=== PATIENT | female | born 1990 | race Hispanic/Latino ===

== ENCOUNTER 2019-06-29 07:35 | Emergency (ER) | payer OTHER ==
--- NOTE | 2019-06-29 09:20 | RAD REPORT ---
EXAM DESCRIPTION: US - Transvaginal OB - 06/29/2019 8:16 am CLINICAL HISTORY: with vaginal bleeding COMPARISON: None. FINDINGS: The uterus measures 8 x 6 x 8 centimeters. Gestational sac within the endometrium measure s 2.8 x 2.9 x 3.7 centimeters. A yolk sac is seen. A pole with a crown-rump length 5 millimeter s. Cardiac activity not seen. Right and left ovary appear normal. . An adnexal mass is not noted. No significant free fluid is seen. IMPRESSION: Single lintrauterine with an estimated gestational age 7 weeks 2 days KIMBERLY Cardiac activity was not visualized. This may indicate a failed . It is still possible this could represent a viable however. It is recommended patient have a followup endovaginal so nogram in 1 week would for re-evaluation.
--- NOTE | 2019-06-29 09:46 | ER ---
Nurse's Notes [facility] Name: Anastacia Hollingsworth Age: 28 yrs Sex: Female : 1990 Arrival Date: 06/29/2019 Time: 07:37 Bed 5 Private MD: Diagnosis: Incomplete spontaneous without complication Presentation: 06/29 07:49 Presenting complaint: Patient states: I have had bright red vaginal bleeding, no clots, sg moderate flow, started this morning. Reports spotting that started yesterday and has just gotten worse. Transition of care: patient was not received from another setting of care. Onset of symptoms was June 29, 2019. Risk Assessment: Do you want to hurt yourself or someone else? Patient reports no desire to harm self or others. Initial Sepsis Screen: Does the patient meet any 2 criteria? No. Patient's initial sepsis screen is negative. Does the patient have a suspected source of infection? No. Patient's initial sepsis screen is negative. Care prior to arrival: None. 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 - Coronavirus screen:: The patient has NOT traveled to [place], [place], or [place] in the past 14 days. The patient has NOT had contact with known/suspected case of Coronavirus? Proceed with normal triage procedures. - Social history:: Smoking status: Patient denies any tobacco usage or history of. - Ebola Screening: : Patient negative for fever greater than or equal to 101.5 degrees Fahrenheit, and additional compatible Ebola Virus Disease symptoms Patient denies exposure to infectious person Patient denies travel to an Ebola-affected area in the 21 days before illness onset No symptoms or risks identified at this time. Screenin:28 Abuse screen: Denies threats or abuse. Denies injuries from another. Nutritional jl7 screening: No deficits noted. Tuberculosis screening: No symptoms or risk factors identified. Fall Risk None identified. Assessment: 07:50 General: Appears in no apparent distress. comfortable, well groomed, well developed, em well nourished, Behavior is calm, cooperative, appropriate for age, Denies fever. Pain: Complains of pain in suprapubic area Pain currently is 3 out of 10 on a pain scale. Pain began 2-3 days ago. Neuro: Level of Consciousness is awake, alert, obeys commands, Oriented to person, place, time, situation, Appropriate for age. Cardiovascular: Capillary refill < 3 seconds Patient's skin is warm and dry. Respiratory: Airway is patent Respiratory effort is even, unlabored, Respiratory pattern is regular, symmetrical. GI: Abdomen is flat. : Reports vaginal bleeding that is bright red, brown, spotty, since yesterday. Derm: Skin is intact, is healthy with good turgor, Skin is pink, warm \T\ dry. Musculoskeletal: Capillary refill < 3 seconds, Range of motion: intact in all extremities. 09:33 Reassessment: Patient appears in no apparent distress at this time. Patient and/or em family updated on plan of care and expected duration. Pain level reassessed. Patient is alert, oriented x 3, equal unlabored respirations, skin warm/dry/pink. 09:47 Reassessment: pending RhoGAM from blood bank. em Vital Signs: 07:47 BP 125 / 77; Pulse 98; Resp 16; Pulse Ox 98% on R/A; Pain 3/10; sg 09:33 BP 113 / 74; Pulse 88; Resp 16; Pulse Ox 99% on R/A; em ED Course: 07:37 Patient arrived in ED. rg4 07:42 Killian Yeung, RN is Primary Nurse. em 07:42 Jose Nguyen PA is PHCP. jr8 07:42 Sudarshan Childress MD is Attending Physician. jr8 07:50 Triage completed. sg 07:50 Arm band placed on. sg 08:28 Patient has correct armband on for positive identification. Bed in low position. Call jl7 light in reach. Side rails up X 1. Pulse ox on. NIBP on. 08:28 Initial lab(s) drawn, by me, sent to lab. jl7 08:31 Abo/rh Typing Sent. jl7 08:31 HCG-Quantitative Sent. jl7 11:10 No provider procedures requiring assistance completed. Patient did not have IV access em during this emergency room visit. Administered Medications: 11:04 Drug: RhoGAM (Human) 300 mcg Route: IM; Site: left deltoid; em 11:12 Follow up: Response: No adverse reaction em Outcome: 09:45 Discharge ordered by MD. mayfield 11:10 Discharged to home ambulatory, with family. em 11:10 Condition: good 11:10 Discharge instructions given to patient, family, Instructed on discharge instructions, follow up and referral plans. no drinking with medication, no driving heavy equipment, medication usage, Demonstrated understanding of instructions, follow-up care, medications, Prescriptions given X 1. 11:12 Patient left the ED. em Signatures: Odin Reyes, RN RN Killian Bryson RN Jose Hassan PA PA jr8 Garcia, Rubi rg4 Che Fletcher RN RN jl7
--- NOTE | 2019-06-29 09:47 | EDPHYS ---
Physician Documentation [facility] Name: Anastacia Hollingsworth Age: 28 yrs Sex: Female : 1990 Arrival Date: 06/29/2019 Time: 07:37 Bed 5 Private MD: ED Physician Sudarshan Childress HPI: 06/29 08:06 This 28 yrs old Female presents to ER via Ambulatory with complaints of jr8 Vaginal Bleeding, + Preg <12wks. 08:06 The patient presents to the emergency department with vaginal bleeding, that is light. jr8 08:07 The estimated gestational age is 8 weeks. course: care: private OB jr8 physician. Previous pregnancies: in previous pregnancies patient has had vaginal delivery, no complications. Associated signs and symptoms: The patient has no apparent associated signs or symptoms. The patient has not experienced similar symptoms in the past. The patient has been recently seen by a physician:. Patient had recent US showing loss of heart beat. Had HR of 82 about 2 weeks ago. Also had decrease in HCG. Was given Cytotec but had not taken it yet. Started to have light spotting and bleeding while using restroom. Wanted to get checked one more time and to talk about cytotec usage . 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 - Coronavirus screen:: The patient has NOT traveled to [place], [place], or [place] in the past 14 days. The patient has NOT had contact with known/suspected case of Coronavirus? Proceed with normal triage procedures. - Social history:: Smoking status: Patient denies any tobacco usage or history of. - Ebola Screening: : Patient negative for fever greater than or equal to 101.5 degrees Fahrenheit, and additional compatible Ebola Virus Disease symptoms Patient denies exposure to infectious person Patient denies travel to an Ebola-affected area in the 21 days before illness onset No symptoms or risks identified at this time. ROS: 08:16 Eyes: Negative for injury, pain, redness, and discharge, ENT: Negative for injury, jr8 pain, and discharge, Neck: Negative for injury, pain, and swelling, Cardiovascular: Negative for chest pain, palpitations, and edema, Respiratory: Negative for shortness of breath, cough, wheezing, and pleuritic chest pain, Abdomen/GI: Negative for abdominal pain, nausea, vomiting, diarrhea, and constipation, Back: Negative for injury and pain, MS/Extremity: Negative for injury and deformity, Skin: Negative for injury, rash, and discoloration, Neuro: Negative for headache, weakness, numbness, tingling, and seizure. 08:16 : Positive for vaginal bleeding. Exam: 08:16 Eyes: Pupils equal round and reactive to light, extra-ocular motions intact. Lids and jr8 lashes normal. Conjunctiva and sclera are non-icteric and not injected. Cornea within normal limits. Periorbital areas with no swelling, redness, or edema. ENT: Nares patent. No nasal discharge, no septal abnormalities noted. Tympanic membranes are normal and external auditory canals are clear. Oropharynx with no redness, swelling, or masses, exudates, or evidence of obstruction, uvula midline. Mucous membranes moist. Neck: Trachea midline, no thyromegaly or masses palpated, and no cervical lymphadenopathy. Supple, full range of motion without nuchal rigidity, or vertebral point tenderness. No Meningismus. Cardiovascular: Regular rate and rhythm with a normal S1 and S2. No gallops, murmurs, or rubs. Normal PMI, no JVD. No pulse deficits. Respiratory: Lungs have equal breath sounds bilaterally, clear to auscultation and percussion. No rales, rhonchi or wheezes noted. No increased work of breathing, no retractions or nasal flaring. Abdomen/GI: Soft, non-tender, with normal bowel sounds. No distension or tympany. No guarding or rebound. No evidence of tenderness throughout. Back: No spinal tenderness. No costovertebral tenderness. Full range of motion. Skin: Warm, dry with normal turgor. Normal color with no rashes, no lesions, and no evidence of cellulitis. MS/ Extremity: Pulses equal, no cyanosis. Neurovascular intact. Full, normal range of motion. Neuro: Awake and alert, GCS 15, oriented to person, place, time, and situation. Cranial nerves II-XII grossly intact. Motor strength 5/5 in all extremities. Sensory grossly intact. Cerebellar exam normal. Normal gait. Vital Signs: 07:47 BP 125 / 77; Pulse 98; Resp 16; Pulse Ox 98% on R/A; Pain 3/10; sg 09:33 BP 113 / 74; Pulse 88; Resp 16; Pulse Ox 99% on R/A; em MDM: 07:42 Patient medically screened. [facility] 09:42 Differential diagnosis: threatened Ab, inevitable Ab, complete Ab, retained Ab, missed jr8 Ab. Data reviewed: vital signs, nurses notes, lab test result(s), radiologic studies, ultrasound. Data interpreted: Pulse oximetry: on room air is 98 %. Interpretation: normal. Counseling: I had a detailed discussion with the patient and/or guardian regarding: the historical points, exam findings, and any diagnostic results supporting the discharge/admit diagnosis, lab results, radiology results, the need for outpatient follow up, an OB/Gyne specialist, to return to the emergency department if symptoms worsen or persist or if there are any questions or concerns that arise at home. ED course: Discussed with patient that HCG has drastically dropped. Still no cardiac activity. Continues to measure small for gestation. This given with the bleeding shows inevitable . Recommended cytotec at this time to liquor bridge operator helper in expulsion of POC. Patient agrees and will take at home. Discussed how to place the pills as well. S/S given to watch for that would indicate her needing to come back for further evaluation . 06/29 07:58 Order name: HCG-Quantitative [facility] 06/29 07:58 Order name: Abo/rh Typing [facility] 06/29 08:56 Order name: ABO/RH typing [facility] 06/29 09:10 Order name: HCG, Quantitative; Complete Time: 09:16 EDMO 06/29 09:35 Order name: Rh Typing [facility] 06/29 09:35 Order name: Antibody Screen [facility] 06/29 07:58 Order name: US Transvaginal Ob [facility] 06/29 09:27 Order name: US; Complete Time: 09:32 EDMS Administered Medications: 11:04 Drug: RhoGAM (Human) 300 mcg Route: IM; Site: left deltoid; em 11:12 Follow up: Response: No adverse reaction em Disposition: 15:18 Co-signature as Attending Physician, Sudarshan Childress MD I agree with the assessment and anahi plan of care. Disposition: 06/29/19 09:45 Discharged to Home. Impression: Incomplete spontaneous without complication. - Condition is Stable. - Discharge Instructions: Miscarriage. - Prescriptions for Tylenol- Codeine #3 300-30 mg Oral Tablet - take 2 tablets by ORAL route every 6 hours As needed; 20 tablet. - Family Work Release, Medication Reconciliation Form, Thank You Letter, Antibiotic Education, Prescription Opioid Use form. - Follow up: Private Physician; When: 2 - 3 days; Reason: Recheck today's complaints, Continuance of care, Re-evaluation by your physician. - Problem is new. - Symptoms are unchanged. Signatures: Dispatcher [employer] EDOdin Madera RN RN sg Anderson, Corey, MD MD cha Munoz, Edgar, RN RN Jose Morales PA PA jr8 Corrections: (The following items were deleted from the chart) 11:12 09:45 06/29/2019 09:45 Discharged to Home. Impression: Incomplete spontaneous em without complication. Condition is Stable. Forms are Medication Reconciliation Form, Thank You Letter, Antibiotic Education, Prescription Opioid Use. Follow up: Private Physician; When: 2 - 3 days; Reason: Recheck today's complaints, Continuance of care, Re-evaluation by your physician. Problem is new. Symptoms are unchanged. jr8
[2019-06-29 11:32] VITALS: BP 113/74; O2SAT 99
== END 2019-06-29 11:12 | disposition home or self-care (01) ==
LOC: ER 07:35
DX: O03.4 Incomplete spontaneous abortion without complication (principal); Z3A.08 8 weeks gestation of pregnancy
CPT/HCPCS: 36415; 86900; 86850; 85461; 86901 ×2; 84702; 76817; 96372; 99284; J2790

== ENCOUNTER 2021-05-07 07:52 | Emergency (ER) | payer OTHER ==
--- OUTSIDE RECORDS SUMMARY | 2021-05-07 07:55 | XMS REPORT | Continuity of Care Document ---
:1990 Author Organization [facility] t Address [address] [place] [address] Care Team Providers Name Role Phone Joyce Jefferson Attending Clinician JOYCE JEFFERSON Attending Clinician Unavailable GIANCARLO KATE Attending Clinician Unavailable Monse CHAPMAN Attending Clinician Unavailable JOYCE JEFFERSON Admitting Clinician Unavailable GIANCARLO KATE Admitting Clinician Unavailable Payers Payer Name Policy Type Policy Number Effective Date Expiration Date S [facility] OPEN ACCESS [employer] [id number] 2020 00:00:00 [employer] EPO Problems This patient has no known problems. Allergies, Adverse Reactions, Alerts This patient has no known allergies or adverse reactions. Social History Social Habit Start Date Stop Date Quantity Comments Source Sex Assigned At [address] 1990 [facility] 00:00:00 00:00:00 Smoking Status Start Date Stop Date Source Unknown if ever smoked [facility] Medications This patient has no known medications. Procedures This patient has no known procedures. Encounters Start End Encounter Admission Attending Care Care Encounter Source Date/Time Date/Time Type Type Clinicians Facility Department ID 2020-11-11 Outpatient [facility] [id number] [place] 10:06:02 Health 2020-11-11 2020-11-11 Telephone LISA Jefferson [id number] [place] 00:00:00 00:00:00 Quyn[id number] [facility] [id number] [facility] [id number] 2019-07-30 2019-07-30 Outpatient VIOLET JEFFERSON [facility] [id number] [facility] 05:18:00 09:41:00 QUYNH 2019-06-30 2019-07-01 Outpatient U LAVIN[id number] 23:05:00 17:34:00 LIZANDRO 2019-06-30 2019-06-30 Emergency E ADELA BL [facility] [id number] [facility] 17:04:00 19:55:00 MARICHUY Results This patient has no known results.
[2021-05-07 08:15] LABS: Urine Blood 2+ (Negative); Urine Glucose Negative (Negative); Urine Protein Negative (Negative); Urine pH 6.5 (5.0-7.0)
[2021-05-07 08:41] LABS: Urine Bacteria <20 /HPF (<20); Urine RBC <5 /HPF (NONE SEEN)
[2021-05-07 08:52] LABS: Absolute Lymphocytes (CBC) 0.8 K/uL (0.7-4.9); Basophils % 0.6 % (0-1.3); Hematocrit 35.9 % (36.0-45.0); MPV 7.7 fL (7.6-11.3); RBC Red Blood Cell Count 4.41 M/uL (3.86-4.86)
[2021-05-07 09:17] LABS: SARS-COV-2 RT PCR NEGATIVE (NEGATIVE)
[2021-05-07 09:38] LABS: ALT/SGPT 27 U/L (12-78); AST/SGOT 14 U/L (15-37); Albumin 2.8 g/dL (3.4-5.0); Alkaline Phosphatase 118 U/L (45-117); BUN Blood Urea Nitrogen 9 mg/dL (7-18); Bicarbonate 24 mmol/L (21-32); Bilirubin Direct 0.1 mg/dL (0-0.2); Bilirubin Total 0.6 mg/dL (0.2-1.0); Glucose Level 97 mg/dL (74-106); Lipase 62 U/L (73-393); Potassium 3.9 mmol/L (3.5-5.1); Protein, Total 6.9 g/dL (6.4-8.2); Sodium Level 141 mmol/L (136-145)
--- NOTE | 2021-05-07 09:45 | RAD REPORT ---
EXAM DESCRIPTION: CT - Abdomen Pelvis W Contrast - 05/07/2021 9:08 am CLINICAL HISTORY: Abdominal pain COMPARISON: May 07, 2021 TECHNIQUE: Computed axial tomography of the abdomen pelvis was obtained. 100 cc Isovue-300 was admin istered intravenously. Oral contrast was not requested which limits evaluation of bowel. All CT scans are performed using dose optimization technique as appropriate and may include automated exposure control or mA/KV adjustment according to patient size. FINDINGS: The liver, spleen, pancreas, adrenal and kidneys appear unremarkable. Umbilical hernia contains fat. The neck measures 17 millimeters. There is no evidence of diverticulitis. Appendix is not clearly seen. No stranding within the right lower quadrant. No adnexal mass. uterus. Endometrium is fluid-filled and mildly inhomogeneous. Maximum diameter approximate ly 10 millimeters. No air is present within the endometrium IMPRESSION: uterus. Endometrium fluid-filled mildly inhomogeneous measuring 10 millimeter s. This is a nonspecific finding but can be seen with endometritis
--- NOTE | 2021-05-07 10:05 | RAD REPORT ---
EXAM DESCRIPTION: US - OB Limited - 05/07/2021 9:53 am CLINICAL HISTORY: Pelvic pain FINDINGS: The uterus measures 13 x 7 x 11 centimeters. Fluid is present within the endometrium. End ometrial stripe measures 10 millimeters. There is some debris present within the endometrium. The end ometrial/myometrial interface appear somewhat indistinct. Mildly increased blood flow to the uterus. Neither ovary seen secondary to overlying bowel gas. The right and left adnexa are unremarkable No significant free fluid is seen. IMPRESSION: These findings are nonspecific but can be seen with an endometritis
--- NOTE | 2021-05-07 10:26 | ER ---
Nurse's Notes [facility] Name: Anastacia Hollingsworth Age: 30 yrs Sex: Female : 1990 Arrival Date: 05/07/2021 Time: 07:53 Bed 6 Private MD: Diagnosis: Endometritis following delivery;Fever, unspecified Presentation: 05/07 08:07 Chief complaint: Patient states: Fever since Saturday05/05/21; pt is 9 days . vg1 Denies NVD or cough. Coronavirus screen: Vaccine status: Patient reports receiving the 2nd dose of the covid vaccine. Ebola Screen: Patient negative for fever greater than or equal to 101.5 degrees Fahrenheit, and additional compatible Ebola Virus Disease symptoms. Initial Sepsis Screen: Does the patient meet any 2 criteria? HR > 90 bpm. Does the patient have a suspected source of infection? No. Patient's initial sepsis screen is negative. Risk Assessment: Do you want to hurt yourself or someone else? Patient reports no desire to harm self or others. Onset of symptoms was May 05, 2021. 08:07 Method Of Arrival: Ambulatory vg1 08:07 Acuity: KEYON 3 vg1 Triage Assessment: 08:07 General: Appears in no apparent distress. comfortable, Behavior is calm, cooperative. vg1 Pain: Complains of pain in right lower quadrant and left lower quadrant Pain currently is 4 out of 10 on a pain scale. EENT: No deficits noted. Neuro: Level of Consciousness is awake, alert, obeys commands, Oriented to person, place, time, situation. Cardiovascular: Patient's skin is warm and dry. Respiratory: Airway is patent Respiratory effort is even, unlabored. GI: Abdomen is round non-distended, Reports lower abdominal pain. : No signs and/or symptoms were reported regarding the genitourinary system. Derm: Skin is intact, is healthy with good turgor. Musculoskeletal: Circulation, motion, and sensation intact. 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 - Social history:: Smoking status: Patient denies any tobacco usage or history of. - Family history:: not pertinent. - Hospitalizations: : No recent hospitalization is reported. Screenin:11 Abuse screen: Denies threats or abuse. Nutritional screening: No deficits noted. vg1 Tuberculosis screening: No symptoms or risk factors identified. Fall Risk No fall in past 12 months (0 pts). No secondary diagnosis (0 pts). IV access (20 points). Ambulatory Aid- None/Bed Rest/Nurse Assist (0 pts). Gait- Normal/Bed Rest/Wheelchair (0 pts) Mental Status- Oriented to own ability (0 pts). Total Delacruz Fall Scale indicates No Risk (0-24 pts). Assessment: 08:11 Reassessment: SEE TRIAGE. vg1 09:18 Reassessment: Patient appears in no apparent distress at this time. No changes from vg1 previously documented assessment. Patient and/or family updated on plan of care and expected duration. Pain level reassessed. Patient is alert, oriented x 3, equal unlabored respirations, skin warm/dry/pink. 10:30 Reassessment: Patient appears in no apparent distress at this time. No changes from vg1 previously documented assessment. Patient and/or family updated on plan of care and expected duration. Pain level reassessed. Patient is alert, oriented x 3, equal unlabored respirations, skin warm/dry/pink. Vital Signs: 08:07 BP 136 / 90; Pulse 105; Resp 16; Temp 99.2(O); Pulse Ox 100% ; Weight 95.71 kg; Height vg1 5 ft. 2 in. (157.48 cm); Pain 0/10; 09:15 BP 127 / 66; Pulse 87; Resp 16; Pulse Ox 100% ; vg1 10:13 BP 130 / 88; Pulse 97; Resp 15; Pulse Ox 100% ; jl7 08:07 Body Mass Index 38.59 (95.71 kg, 157.48 cm) vg1 ED Course: 07:53 Patient arrived in ED. mr 07:54 Eloy Barragan MD is Attending Physician. rn 08:07 Kimberley Arias RN is Primary Nurse. vg1 08:07 Arm band placed on. vg1 08:08 Triage completed. vg1 08:11 Patient has correct armband on for positive identification. Bed in low position. Call vg1 light in reach. Side rails up X 1. 08:11 No provider procedures requiring assistance completed. vg1 08:17 COVID swab sent to lab. jl7 08:20 Missed attempt(s): 20 gauge in right antecubital area. vg1 08:30 Inserted saline lock: 20 gauge in left antecubital area, using aseptic technique. vg1 ,using aseptic technique. Completed by MAGALYS Bolton Blood collected. 08:30 Initial lab(s) drawn, by ED staff, sent to lab. First set of blood cultures drawn by ED vg1 staff. 09:08 CT Abd/Pelvis - IV Contrast Only In Process Unspecified. EDMS 09:53 US OB Limited In Process Unspecified. EDMS 10:22 initiated a transfer with Jazzmine from the [facility] Transfer Umpire. eb 10:59 connected the car framer integration analyst for [facility] with Dr. Barragan for patient transfer eb consultation. 11:01 administrative approval given by Jazzmine Lopez Rn/ patient has been accepted to [facility] / Dr. Freddy Chung has accepted the patient in transfer/ report to be called to [phone]. 11:30 Procalcitonin Sent. jl7 11:30 Basic Metabolic Panel Sent. jl7 11:30 CBC with Diff Sent. jl7 11:30 Quantitative Hcg Sent. jl7 11:47 Patient transferred, IV remains in place. vg1 Administered Medications: 10:39 Drug: Clindamycin 900 mg Route: IVPB; Infused Over: 30 mins; Site: left antecubital; vg1 11:13 Follow up: Response: No adverse reaction; IV Status: Completed infusion; IV Intake: [id number] 11:13 Drug: Gentamicin 5 mg/kg Route: IVPB; Infused Over: 60 mins; Site: left antecubital; vg1 11:47 Follow up: IV Status: Infusion continued upon transfer vg1 Intake: 11:13 IV: 50ml; Total: 50ml. vg1 Outcome: 10:26 ER care complete, transfer ordered by MD. moon 11:47 Transferred [facility] vg1 11:47 Condition: good 11:47 Instructed on the need for transfer. 11:47 Patient left the ED. vg1 Signatures: Dispatcher [employer] MARIA EElena Deng mr Eloy Barragan MD MD rn Leal, Jahala, RN RN jl7 Debbie Glaser Victoria, RN RN vg1 Corrections: (The following items were deleted from the chart) 08:10 08:07 Chief complaint: Patient states: Fever since Saturday05/05/21. Denies NVD or vg1 cough. vg1
--- NOTE | 2021-05-07 10:27 | EDPHYS ---
Physician Documentation [facility] Name: Anastacia Hollingsworth Age: 30 yrs Sex: Female : 1990 Arrival Date: 05/07/2021 Time: 07:53 Bed 6 Private MD: ED Physician Eloy Barragan HPI: 05/07 08:34 This 30 yrs old Female presents to ER via Ambulatory with complaints of Fever. rn 08:34 The patient reports fever, that was measured at 101 degrees Fahrenheit. Onset: The rn symptoms/episode began/occurred yesterday. Modifying factors: there are no obvious modifying factors. Associated signs and symptoms: Pertinent positives: abdominal pain, Pertinent negatives: altered mental status, cough, diarrhea, headache, hemoptysis, sinus congestion, skin rash, shortness of breath, sore throat, swelling, vomiting. Severity of symptoms: At their worst the symptoms were mild in the emergency department the symptoms are unchanged. The patient has not experienced similar symptoms in the past. The patient has been recently seen by a physician:. Patient reports 9 days following uncomplicated vaginal delivery, did require artificial rupture of membranes and was in labor for approximately 9 to 10 hours. Denies any foul-smelling discharge or change in discharge. Denies urinary symptoms. Denies cough or shortness of breath. Does report right lower quadrant pain. No breast swelling or increase in pain. No sick contacts.. 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 - Social history:: Smoking status: Patient denies any tobacco usage or history of. - Family history:: not pertinent. - Hospitalizations: : No recent hospitalization is reported. ROS: 08:34 Constitutional: Positive for fever Eyes: Negative for injury, pain, redness, and burning supervisor, ENT: Negative for injury, pain, and discharge, Neck: Negative for injury, pain, and swelling, Cardiovascular: Negative for chest pain, palpitations, and edema, Respiratory: Negative for shortness of breath, cough, wheezing, and pleuritic chest pain, Abdomen/GI: Positive for right lower quadrant abdominal pain Back: Negative for injury and pain, : Negative for injury, bleeding, discharge, and swelling, MS/Extremity: Negative for injury and deformity, Skin: Negative for injury, rash, and discoloration, Neuro: Negative for headache, weakness, numbness, tingling, and seizure. Exam: 08:34 Constitutional: This is a well developed, well nourished patient who is awake, alert, rn and in no acute distress. Ambulatory to room Head/Face: Normocephalic, atraumatic. Eyes: Periorbital areas with no swelling, redness, or edema. Neck: Trachea midline, no masses palpated, and no cervical lymphadenopathy Cardiovascular: Tachycardic, regular. No pulse deficits Respiratory: Speaking full sentences, unlabored. No increased work of breathing Abdomen/GI: Soft, mild right lower quadrant tenderness without masses or peritoneal signs Skin: Warm, dry MS/ Extremity: Pulses equal, no cyanosis. Neuro: Awake and alert, GCS 15 Vital Signs: 08:07 BP 136 / 90; Pulse 105; Resp 16; Temp 99.2(O); Pulse Ox 100% ; Weight 95.71 kg; Height vg1 5 ft. 2 in. (157.48 cm); Pain 0/10; 09:15 BP 127 / 66; Pulse 87; Resp 16; Pulse Ox 100% ; vg1 10:13 BP 130 / 88; Pulse 97; Resp 15; Pulse Ox 100% ; jl7 08:07 Body Mass Index 38.59 (95.71 kg, 157.48 cm) vg1 MDM: 07:54 Patient medically screened. rn 10:15 ED course: Pt with possible early endometritis, will initiate transfer back to [facility] given she delivered there 9 days ago and her OB is there. Abx ordered. . 10:25 Differential diagnosis: viral Infection, bacterial infection, UTI, endometritis. Data rn reviewed: vital signs, nurses notes, lab test result(s), radiologic studies, CT scan, ultrasound, and as a result, I will admit patient. Counseling: I had a detailed discussion with the patient and/or guardian regarding: the historical points, exam findings, and any diagnostic results supporting the discharge/admit diagnosis, lab results, radiology results, the need to transfer to another facility, for higher level of care, [facility] does not immediately have the required specialist. Response to treatment: There is no appreciated change of the patient's symptoms at this time, and as a result, I will admit patient. 05/07 08:09 Order name: CBC with Diff rn 05/07 08:09 Order name: Basic Metabolic Panel rn 05/07 08:09 Order name: Procalcitonin rn 05/07 08:09 Order name: LFT's; Complete Time: 09:40 rn 05/07 08:09 Order name: Lipase; Complete Time: 09:40 rn 05/07 08:09 Order name: LDH; Complete Time: 09:40 rn 05/07 08:09 Order name: Urine Culture rn 05/07 08:09 Order name: Urine Microscopic Only; Complete Time: 09:12 rn 05/07 08:09 Order name: Blood Culture Adult (2) rn 05/07 08:09 Order name: CBC with Automated Diff; Complete Time: 09:12 EDMS 05/07 08:09 Order name: Basic Metabolic Panel; Complete Time: 09:40 EDMS 05/07 08:09 Order name: Procalcitonin; Complete Time: 09:22 EDMS 05/07 08:09 Order name: IV Start; Complete Time: 08:34 rn 05/07 08:09 Order name: Urine Dipstick-Ancillary (obtain specimen); Complete Time: 08:34 rn 05/07 08:09 Order name: US OB Limited; Complete Time: 10:10 rn 05/07 08:12 Order name: Quantitative Hcg rn 05/07 08:13 Order name: HCG, Quantitative; Complete Time: 09:12 EDMS 05/07 08:15 Order name: Urine Dipstick-Ancillary; Complete Time: 08:33 EDMS 05/07 08:33 Order name: CT Abd/Pelvis - IV Contrast Only; Complete Time: 10:10 rn 05/07 08:38 Order name: COVID-19/FLU A+B; Complete Time: 09:22 EDMS Administered Medications: 10:39 Drug: Clindamycin 900 mg Route: IVPB; Infused Over: 30 mins; Site: left antecubital; vg1 11:13 Follow up: Response: No adverse reaction; IV Status: Completed infusion; IV Intake: 04agrb1 11:13 Drug: Gentamicin 5 mg/kg Route: IVPB; Infused Over: 60 mins; Site: left antecubital; vg1 11:47 Follow up: IV Status: Infusion continued upon transfer vg1 Disposition Summary: 05/07/21 10:26 Transfer Ordered Transfer Location: [facility] rn Reason: Higher level of care rn Condition: Stable rn Problem: new rn Symptoms: are unchanged rn Accepting Physician: Dr.C Chung(05/07/21 11:47) vg1 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 EDMS EDMS 08:39 08:09 Influenza Screen (A \T\ B)+BA.LAB.BRZ ordered. EDMS EDMS 11:07 10:26 Dr. moon eb 11:47 11:07 Dr.C Chung eb vg1
[2021-05-07] MEDS ORDERED: CLINDAMYCIN 900MG/D5W 900 MG/50 ML IVPB IV ONE (10:33)
[2021-05-07] MEDS ORDERED: NA CHLORIDE 0.9% IVPB ONE (11:00)
[2021-05-07] MEDS ORDERED: GENTAMICIN IVPB ONE (11:00)
[2021-05-07 11:58] VITALS: TEMP 99.2; O2SAT 100
[2021-05-07 12:11] VITALS: BP 130/88
== END 2021-05-07 11:47 | disposition short-term general hospital (02) ==
LOC: ER 07:52
DX: O86.12 Endometritis following delivery (principal); Z20.822 Contact with and (suspected) exposure to COVID-19
CPT/HCPCS: 96365; 96367; 87040 ×2; 87088; 85025; 87086; 80048; 36415; 83615; 82565; 80076; 84702; 83690; 84145; 0240U; 74177; 76815; 99285; Q9967; J1580; 81003; 81015; 87077; 87186

== ENCOUNTER 2021-11-11 20:08 | Emergency (ER) | payer BC ==
--- OUTSIDE RECORDS SUMMARY | 2021-11-11 20:11 | XMS REPORT | Continuity of Care Document ---
:1990 Author Organization [facility] t Address [address] [place] [address] Care Team Providers Name Role Phone Joyce Jefferson Attending Clinician JOYCE JEFFERSON Attending Clinician Unavailable GIANCARLO KATE Attending Clinician Unavailable Monse CHAPMAN Attending Clinician Unavailable JOYCE JEFFERSON Admitting Clinician Unavailable GIANCARLO KATE Admitting Clinician Unavailable Payers Payer Name Policy Type Policy Number Effective Date Expiration Date S [facility] OPEN ACCESS [employer]ET[employer] [id number] 2020 00:00:00 [employer] EPO Problems This patient has no known problems. Allergies, Adverse Reactions, Alerts This patient has no known allergies or adverse reactions. Social History Social Habit Start Date Stop Date Quantity Comments Source Sex Assigned At [birth year] [facility] 00:00:00 00:00:00 Smoking Status Start Date Stop Date Source Unknown if ever smoked [facility] Medications This patient has no known medications. Procedures This patient has no known procedures. Encounters Start End Encounter Admission Attending Care Care Encounter Source Date/Time Date/Time Type Type Clinicians Facility Department ID 2020-11-11 Outpatient [facility] [id number] [place] 10:06:02 Health 2020-11-11 2020-11-11 Telephone LISA Jefferson [id number] [place] 00:00:00 00:00:00 Quynh [id number] [id number] [facility] [id number] 2019-07-30 2019-07-30 Outpatient VIOLET JEFFERSON [facility] [id number] [facility] 05:18:00 09:41:00 QUYNH 2019-06-30 2019-07-01 Outpatient [id number] 23:05:00 17:34:00 LIZANDRO 2019-06-30 2019-06-30 Emergency E ADELA BL [facility] [id number] [facility] 17:04:00 19:55:00 MARICHUY Results This patient has no known results.
--- NOTE | 2021-11-11 21:09 | RAD REPORT ---
EXAM DESCRIPTION: RAD - Ankle Right 3 View - 11/11/2021 9:04 pm CLINICAL HISTORY: PAIN COMPARISON: No comparisons FINDINGS/IMPRESSION: No acute fracture. No malalignment. No significant focal degenerative changes.
--- NOTE | 2021-11-11 21:28 | ER ---
Nurse's Notes [facility] Name: Anastacia Hollingsworth Age: 31 yrs Sex: Female : 1990 Arrival Date: 11/11/2021 Time: 20:10 Bed 6 Private MD: Diagnosis: Contusion of right foot Presentation: 11/11 20:15 Chief complaint: Patient states: I was pumping - my legs fell asleep. When I stood up I ld1 rolled my right ankle and heard a loud crack. C/O right foot pain. Coronavirus screen: At this time, the client does not indicate any symptoms associated with coronavirus-19. Ebola Screen: No symptoms or risks identified at this time. Initial Sepsis Screen: Does the patient meet any 2 criteria? No. Patient's initial sepsis screen is negative. Does the patient have a suspected source of infection? No. Patient's initial sepsis screen is negative. Risk Assessment: Do you want to hurt yourself or someone else? Patient reports no desire to harm self or others. Onset of symptoms was November 11, 2021. 20:15 Method Of Arrival: Wheelchair ld1 20:15 Acuity: KEYON 4 ld1 Triage Assessment: 20:17 General: Appears in no apparent distress. comfortable, Behavior is calm, cooperative, ld1 appropriate for age. Pain: Complains of pain in right foot Pain does not radiate. Pain currently is 4 out of 10 on a pain scale. EENT: No signs and/or symptoms were reported regarding the EENT system. Neuro: Level of Consciousness is awake, alert, obeys commands, Oriented to person, place, time, situation, Appropriate for age. Cardiovascular: Capillary refill < 3 seconds Patient's skin is warm and dry. Respiratory: Airway is patent Respiratory effort is even, unlabored. GI: Abdomen is flat, non-distended. : No signs and/or symptoms were reported regarding the genitourinary system. Derm: No signs and/or symptoms reported regarding the dermatologic system. Musculoskeletal: No signs and/or symptoms reported regarding the musculoskeletal system. Injury Description: rolled right ankle. 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 - Social history:: Smoking status: Patient denies any tobacco usage or history of. Patient/guardian denies using alcohol. Screenin:03 Abuse screen: Denies threats or abuse. Denies injuries from another. Nutritional lg3 screening: No deficits noted. Tuberculosis screening: No symptoms or risk factors identified. Fall Risk None identified. Assessment: 21:03 General: Appears in no apparent distress. comfortable, Behavior is calm, cooperative. lg3 Pain: Complains of pain in right foot. Neuro: No deficits noted. Argueta Agitation-Sedation Scale (RASS): 0 - Alert and Calm Level of Consciousness is awake, alert, obeys commands, Oriented to person, place, time, situation. Cardiovascular: No deficits noted. Denies chest pain, shortness of breath, Capillary refill < 3 seconds Clubbing of nail beds is absent JVD is absent Patient's skin is warm and dry. Respiratory: No deficits noted. Airway is patent Trachea midline Respiratory effort is even, unlabored, Respiratory pattern is regular, symmetrical. GI: No deficits noted. No signs and/or symptoms were reported involving the gastrointestinal system. : No deficits noted. No signs and/or symptoms were reported regarding the genitourinary system. EENT: No deficits noted. No signs and/or symptoms were reported regarding the EENT system. Derm: No deficits noted. Skin is intact, is healthy with good turgor, Skin is dry, Skin temperature is warm. Musculoskeletal: Circulation, motion, and sensation intact. Range of motion: limited in right foot Swelling present in right foot. 21:38 Reassessment: Patient appears in no apparent distress at this time. No changes from lg3 previously documented assessment. Patient and/or family updated on plan of care and expected duration. Pain level reassessed. Patient is alert, oriented x 3, equal unlabored respirations, skin warm/dry/pink. Vital Signs: 20:15 BP 118 / 64; Pulse 87; Resp 18; Temp 98.6(TE); Pulse Ox 100% on R/A; Weight 89.81 kg; ld1 Height 5 ft. 3 in. (160.02 cm); Pain 4/10; 21:38 BP 120 / 66; Pulse 85; Resp 18 S; Pulse Ox 100% on R/A; lg3 20:15 Body Mass Index 35.07 (89.81 kg, 160.02 cm) ld1 ED Course: 20:10 Patient arrived in ED. vc1 20:11 Lakia Mcdowell FNP is [facility] jh7 20:11 Ken Clarke MD is Attending Physician. 7 20:15 Leslie Wellington, RN is Primary Nurse. ld1 20:17 Deysi Siddiqui, RN is Primary Nurse. lg3 20:17 Triage completed. ld1 20:17 Arm band placed on right wrist. ld1 21:03 Patient has correct armband on for positive identification. Bed in low position. Call lg3 light in reach. Side rails up X 1. Client placed on continuous cardiac and pulse oximetry monitoring. NIBP monitoring applied. Door closed. Noise minimized. 21:06 XRAY Ankle RIGHT 3 view In Process Unspecified. EDMS 21:06 XRAY Foot RIGHT 3 View In Process Unspecified. EDMS 21:39 No provider procedures requiring assistance completed. Patient did not have IV access lg3 during this emergency room visit. Administered Medications: No medications were administered Medication: 21:40 VIS not applicable for this client. lg3 Outcome: 21:[address] ordered [address] . [facility] 21:40 Discharged to home with crutches. lg3 21:40 Condition: stable 21:40 Discharge instructions given to patient, Instructed on discharge instructions, crutch walking, Demonstrated understanding of instructions, crutch walking. 21:41 Patient left the ED. lg3 Signatures: Dispatcher [employer] EDTX Deysi Siddiqui, MAGALYS DOWELL lg3 Leslie Wellington, RN RN 1 Maura Freitas RN RN 1 Lakia Mcdowell FNP JUVENILE PROBATION OFFICER [facility]
--- NOTE | 2021-11-11 21:28 | EDPHYS ---
Physician Documentation [facility] Name: Anastacia Hollingsworth Age: 31 yrs Sex: Female : 1990 Arrival Date: 11/11/2021 Time: 20:10 Bed 6 Private MD: ED Physician Ken Clarke HPI: 11/11 20:20 This 31 yrs old Female presents to ER via Wheelchair with complaints of Foot jh7 Injury. 20:20 The patient presents with an injury, pain, that is acute. The complaints affect the jh7 right foot. Onset: The symptoms/episode began/occurred acutely. Associated signs and symptoms: Pertinent positives: swelling, Pertinent negatives calf tenderness, fever, nausea, numbness. The patient reports that she got out of bed, slipped, and fell on her right foot. States that she heard a pop. Reports pain with weightbearing and range of motion.. 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 - Social history:: Smoking status: Patient denies any tobacco usage or history of. Patient/guardian denies using alcohol. ROS: 20:20 Constitutional: Negative for fever, chills, and weight loss, Cardiovascular: Negative jh7 for chest pain, palpitations, and edema, Respiratory: Negative for shortness of breath, cough, wheezing, and pleuritic chest pain, Abdomen/GI: Negative for abdominal pain, nausea, vomiting, diarrhea, and constipation, Back: Negative for injury and pain, Skin: Negative for injury, rash, and discoloration, Neuro: Negative for headache, weakness, numbness, tingling, and seizure. 20:20 MS/extremity: Positive for injury or acute deformity, ecchymosis, pain, swelling, Negative for decreased range of motion. 20:20 All other systems are negative. Exam: 20:20 Constitutional: This is a well developed, well nourished patient who is awake, alert, jh7 and in no acute distress. Cardiovascular: Regular rate and rhythm with a normal S1 and S2. No gallops, murmurs, or rubs. Normal PMI, no JVD. No pulse deficits. Respiratory: Lungs have equal breath sounds bilaterally, clear to auscultation and percussion. No rales, rhonchi or wheezes noted. No increased work of breathing, no retractions or nasal flaring. Abdomen/GI: Soft, non-tender, with normal bowel sounds. No distension or tympany. No guarding or rebound. No evidence of tenderness throughout. Back: No spinal tenderness. No costovertebral tenderness. Full range of motion. Skin: Warm, dry with normal turgor. Normal color with no rashes, no lesions, and no evidence of cellulitis. Neuro: Awake and alert, GCS 15, oriented to person, place, time, and situation. Sensory grossly intact. Cerebellar exam normal. Antalgic gait. 20:20 Musculoskeletal/extremity: NVI, large contusion over the dorsum of the foot with tenderness to palpation. Pain with dorsi and plantar flexion.. Vital Signs: 20:15 BP 118 / 64; Pulse 87; Resp 18; Temp 98.6(TE); Pulse Ox 100% on R/A; Weight 89.81 kg; ld1 Height 5 ft. 3 in. (160.02 cm); Pain 4/10; 21:38 BP 120 / 66; Pulse 85; Resp 18 S; Pulse Ox 100% on R/A; lg3 20:15 Body Mass Index 35.07 (89.81 kg, 160.02 cm) ld1 MDM: 20:11 Patient medically screened. [facility] 20:20 Differential diagnosis: closed fracture, contusion. Data reviewed: vital signs, nurses [facility] notes, radiologic studies, plain films. Data interpreted: Pulse oximetry: is 100 %. Interpretation: normal. Counseling: I had a detailed discussion with the patient and/or guardian regarding: the historical points, exam findings, and any diagnostic results supporting the discharge/admit diagnosis, to return to the emergency department if symptoms worsen or persist or if there are any questions or concerns that arise at home. ED course: Reviewed the x-ray results with the patient. She was placed on crutches and advised to take ibuprofen/Tylenol for pain.. 11/11 20:18 Order name: XRAY Ankle RIGHT 3 view; Complete Time: 21:26 [facility] 11/11 20:18 Order name: XRAY Foot RIGHT 3 View; Complete Time: 21:26 [facility] 11/11 21:26 Order name: Crutches; Complete Time: 21:38 [facility] Administered Medications: No medications were administered Disposition: 11/12 05:16 Co-signature as Attending Physician, Ken Clarke MD. [facility] Disposition Summary: 11/11/21 21:27 Discharge Ordered Location: Home [facility] Problem: new [facility] Symptoms: are unchanged [facility] Condition: Stable [facility] Diagnosis - Contusion of right foot [facility] Followup: [facility] - With: Private Physician - When: 2 - 3 days - Reason: Recheck today's complaints Discharge Instructions: - Discharge Summary Sheet [facility] - Foot Contusion [facility] Forms: - Medication Reconciliation Form [facility] - Thank You Letter [facility] Signatures: Dispatcher [employer] Ken Cope MD MD [facility] Leslie Wellington RN RN ld1 Lakia Mcdowell FNP [place] [id number]
[2021-11-11 22:31] VITALS: TEMP 98.6; O2SAT 100
[2021-11-11 22:33] VITALS: BP 120/66
== END 2021-11-11 21:41 | disposition home or self-care (01) ==
LOC: ER 20:08
DX: S90.31XA Contusion of right foot, initial encounter (principal)
CPT/HCPCS: 99283

== ENCOUNTER 2022-10-04 08:30 | Emergency (ER) | payer BC ==
--- OUTSIDE RECORDS SUMMARY | 2022-10-04 08:33 | XMS REPORT | Continuity of Care Document ---
:1990 Author Organization [facility] t Address [address] [facility] [address] [place] [address] Care Team Providers Name Role Phone Quynh Jefferson Attending Clinician [phone] QUYNH JEFFERSON Attending Clinician Unavailable LIZANDRO KATE Attending Clinician Unavailable MARICHUY CHAPMAN Attending Clinician Unavailable QUYNH JEFFERSON Admitting Clinician Unavailable LIZANDRO KATE Admitting Clinician Unavailable Payers Payer Name Policy Type Policy Number Effective Date Expiration Date S mari OPEN ACCESS [employer]ET[employer] [id number] 2020 00:00:00 [employer] EPO Problems This patient has no known problems. Allergies, Adverse Reactions, Alerts This patient has no known allergies or adverse reactions. Social History Social Habit Start Date Stop Date Quantity Comments Source Sex Assigned At [birth year] [facility] 00:00:00 00:00:00 Smoking Status Start Date Stop Date Source Unknown if ever smoked [facility] Medications This patient has no known medications. Procedures This patient has no known procedures. Encounters Start End Encounter Admission Attending Care Care Encounter Source Date/Time Date/Time Type Type Clinicians Facility Department ID 2020-11-11 Outpatient [facility] [id number] [place] 10:06:02 Health 2020-11-11 2020-11-11 Telephone LISA Jefferson [id number] [place] 00:00:00 00:00:00 Quynh ROMAN [id number] H [facility] [id number] [facility] [id number] 2019-07-30 2019-07-30 Outpatient RONNY CHAI [facility] [id number] [facility] 05:18:00 09:41:00 QUYNH 2019-06-30 2019-07-01 Outpatient U LAVINIA [facility] [id number] [facility] 23:05:00 17:34:00 LIZANDRO 2019-06-30 2019-06-30 Emergency E ADELA BL [facility] [id number] [facility] 17:04:00 19:55:00 MARICHUY Results This patient has no known results.
--- NOTE | 2022-10-04 09:22 | RAD REPORT ---
EXAM DESCRIPTION: RAD - Ankle Right 3 View - 10/04/2022 8:57 am CLINICAL HISTORY: Right ankle pain FINDINGS: No fracture or dislocation is seen.
--- NOTE | 2022-10-04 09:23 | RAD REPORT ---
EXAM DESCRIPTION: RAD - Foot Right 3 View - 10/04/2022 8:57 am CLINICAL HISTORY: Right foot pain status post injury FINDINGS: No fracture or dislocation is seen
--- NOTE | 2022-10-04 09:30 | EDPHYS ---
Physician Documentation [facility] Name: Anastacia Hollingsworth Age: 31 yrs Sex: Female : 1990 Arrival Date: 10/04/2022 Time: 08: Bed 2 Private MD: ED Physician Hussain Paula HPI: 10/04 09:06 This 31 yrs old Female presents to ER via Wheelchair with complaints of Ankle rt Injury. 09:06 Patient presents to the ED with an injury to the right ankle. Patient states that just rt prior to arrival, a "gave out" on her and she states that she twisted the ankle. She has pain laterally on the ankle as well as to the foot. Denies other injury, other acute complaints at this time. Pain is aching nature, nonradiating, mild in severity, no other aggravating alleviating factors.. Historical: - Allergies: 08: No Known Allergies; ll1 - PMHx: 08: pre eclampsia; ll1 - PSHx: 08:31 D\\T\\C; ll1 - Immunization history:: Adult Immunizations up to date. - Social history:: Smoking status: Patient denies any tobacco usage or history of. - Family history:: not pertinent. ROS: 09:06 Constitutional: Negative for fever, chills, and weight loss, Back: Negative for injury rt and pain, Skin: Negative for injury, rash, and discoloration, Neuro: Negative for headache, weakness, numbness, tingling, and seizure, Psych: Negative for depression, anxiety, suicide ideation, homicidal ideation, and hallucinations. 09:06 MS/extremity: Positive for pain, Negative for laceration. Exam: 09:06 Constitutional: This is a well developed, well nourished patient who is awake, alert, rt and in no acute distress. Head/Face: Normocephalic, atraumatic. Skin: Warm, dry with normal turgor. Normal color with no rashes, no lesions, and no evidence of cellulitis. Neuro: Awake and alert, GCS 15, oriented to person, place, time, and situation. Cranial nerves II-XII grossly intact. Motor strength 5/5 in all extremities. Sensory grossly intact. Cerebellar exam normal. Normal gait. Psych: Awake, alert, with orientation to person, place and time. Behavior, mood, and affect are within normal limits. 09:06 Musculoskeletal/extremity: Tenderness with mild swelling over the lateral malleolus of the right ankle, mild tenderness laterally on the foot, pulses, motor, sensation intact, no other focal areas of tenderness, range of motion intact.. Vital Signs: 08:38 BP 101 / 67; Pulse 109; Resp 18; Temp 97.7; Pulse Ox 100% on R/A; ph MDM: 08:32 Patient medically screened. rt 09:30 Differential diagnosis: fracture, sprain. Data reviewed: vital signs, nurses notes, rt radiologic studies. Independent interpretation of the following test(s) in the Emergency Department X-Ray: My interpretation is No fracture seen on interpretation of the x-ray images. Counseling: I had a detailed discussion with the patient and/or guardian regarding: the historical points, exam findings, and any diagnostic results supporting the discharge/admit diagnosis, radiology results, the need for outpatient follow up. 10/04 08:39 Order name: Foot Right 3 View XRAY; Complete Time: 09:24 rt 10/04 08:39 Order name: Ankle Right 3 View XRAY; Complete Time: 09:24 rt Administered Medications: No medications were administered Disposition Summary: 10/04/22 09:29 Discharge Ordered Location: Home rt Problem: new rt Symptoms: have improved rt Condition: Stable rt Diagnosis - Sprain of unspecified ligament of right ankle rt Followup: rt - With: Private Physician - When: 2 - 3 days - Reason: Discharge Instructions: - Discharge Summary Sheet rt - Ankle Sprain rt Forms: - Medication Reconciliation Form rt - Thank You Letter rt - Antibiotic Education rt - Prescription Opioid Use rt Signatures: Dispatcher [employer] Karie Mendoza, RN RN ll1 Hussain Paula MD MD rt
--- NOTE | 2022-10-04 09:30 | ER ---
Nurse's Notes [facility] Name: Anastacia Hollingsworth Age: 31 yrs Sex: Female : 1990 Arrival Date: 10/04/2022 Time: 08:30 Bed 2 Private MD: Diagnosis: Sprain of unspecified ligament of right ankle Presentation: 10/04 08:32 Chief complaint: Patient states: Rolled R ankle while getting kid into vehicle just ll1 [employer]. Coronavirus screen: Vaccine status: Patient reports receiving the 2nd dose of the covid vaccine. Client denies travel out of the [place] in the last 14 days. At this time, the client does not indicate any symptoms associated with coronavirus-19. Ebola Screen: Patient denies travel to an Ebola-affected area in the 21 days before illness onset. Initial Sepsis Screen: Does the patient meet any 2 criteria? No. Patient's initial sepsis screen is negative. Does the patient have a suspected source of infection? No. Patient's initial sepsis screen is negative. Risk Assessment: Do you want to hurt yourself or someone else? Patient reports no desire to harm self or others. Onset of symptoms was October 04, 2022. 08:32 Acuity: KEYON 4 ll1 08:32 Method Of Arrival: Wheelchair ll1 Triage Assessment: 08:33 General: Appears uncomfortable, Behavior is calm, cooperative, appropriate for age. ll1 Pain: Complains of pain in R ankle. Musculoskeletal: Circulation, motion, and sensation intact. Capillary refill < 3 seconds, Swelling present in R ankle. Historical: - Allergies: 08:31 No Known Allergies; ll1 - PMHx: 08:31 pre eclampsia; ll1 - PSHx: 08:31 D\T\C; ll1 - Immunization history:: Adult Immunizations up to date. - Social history:: Smoking status: Patient denies any tobacco usage or history of. - Family history:: not pertinent. Screenin:47 [facility] ED Fall Risk Assessment (Adult) History of falling in the last 3 months, ph including since admission Yes- single mechanical fall (1 pt) Confusion or Disorientation No (0 pts) Intoxicated or Sedated No (0 pts) Impaired Gait No (0 pts) Mobility Assist Device Used No (0 pt) Altered Elimination No (0 pt) Score/Fall Risk Level 0 - 2 = Low Risk Oriented to surroundings, Maintained a safe environment, Hourly rounding (assess needs \T\ fall precautionary measures) done. Abuse screen: Denies threats or abuse. Denies injuries from another. Nutritional screening: No deficits noted. Tuberculosis screening: No symptoms or risk factors identified. Assessment: 08:45 General: Appears in no apparent distress. comfortable, well groomed, Behavior is calm, ph cooperative, appropriate for age. Pain: Complains of pain in right foot, right ankle and right Achilles. Neuro: Level of Consciousness is awake, alert, obeys commands, Oriented to person, place, time, situation. Cardiovascular: Capillary refill < 3 seconds in bilateral fingers Patient's skin is warm and dry. Respiratory: Airway is patent Respiratory effort is even, unlabored. Derm: Skin is pink, warm \T\ dry. Musculoskeletal: Circulation, motion, and sensation intact. 09:58 Reassessment: Patient appears in no apparent distress at this time. Patient and/or ph family updated on plan of care and expected duration. Pain level reassessed. Patient is alert, oriented x 3, equal unlabored respirations, skin warm/dry/pink. Vital Signs: 08:38 BP 101 / 67; Pulse 109; Resp 18; Temp 97.7; Pulse Ox 100% on R/A; ph ED Course: 08:31 Patient arrived in ED. ll1 08:31 Hussain Paula MD is Attending Physician. rt 08:31 Arm band placed on Patient placed in an exam room, on a stretcher. ll1 08:33 Triage completed. ll1 08:38 Malena Gardner, RN is Primary Nurse. ph 08:47 Patient has correct armband on for positive identification. Bed in low position. Call ph light in reach. Side rails up X 1. Pulse ox on. NIBP on. Door closed. Noise minimized. Warm blanket given. 08:58 Foot Right 3 View XRAY In Process Unspecified. EDMS 08:58 Ankle Right 3 View XRAY In Process Unspecified. EDMS 09:58 No provider procedures requiring assistance completed. Patient did not have IV access ph during this emergency room visit. 3D boot applied to right foot. Administered Medications: No medications were administered Medication: 08:47 VIS not applicable for this client. ph Outcome: 09:29 Discharge ordered by . rt 09:59 Discharged to home ambulatory, with family. ph :59 Condition: good :59 Discharge instructions given to patient, Instructed on discharge instructions, follow up and referral plans. Demonstrated understanding of instructions, follow-up care. :59 Patient left the ED. ph Signatures: Dispatcher [employer] Malena Carrillo RN RN ph Lewis, Lynsay, RN RN ll1 Hussain Paula MD MD rt
[2022-10-04 10:07] VITALS: BP 101/67; TEMP 97.7; O2SAT 100
== END 2022-10-04 09:59 | disposition home or self-care (01) ==
LOC: ER 08:30
DX: S93.401A Sprain of unspecified ligament of right ankle, initial encounter (principal)
CPT/HCPCS: 99284